=== PATIENT | male | born 1965 | race African-American/Black ===

== ENCOUNTER 2017-03-29 14:36 | Inpatient (IN) | payer OTHER ==
[2017-03-29 15:04] VITALS: BMI 27.4
--- NOTE | 2017-03-29 15:26 | HP ---
COWS - Scale Resting Pulse: 0= [place] 80 or Below Sweatin=Flushed/Facial Moisture Restless Observation: 1= Difficult to Sit Still Pupil Size: 0= Normal to Room Light Bone or Joint Aches: 2= Severe Diffuse Aches Runny Nose/ Eye Tearin= Constantly Teary/Runny GI Upset > 30mins: 2= Nausea/Diarrhea Tremor Observation: 2= Slight Tremor Visible Yawning Observation: 1= 1-2x During Session Anxiety or Irritability: 2=Irritable/Anxious Goose Flesh Skin: 3=Piloerection COWS Score: 19 Admission ROS S - HPI Chief Complaint: I am here for detox then go to rehab afterwards. Allergies/Adverse Reactions: Allergies Allergy/AdvReac Type Severity Reaction Status Date / Time No Known Allergies Allergy Verified 03/29/17 15:19 History of Present Illness: pt is a 51yr old male with a history of heroin dependence seeking detox for treatment. This is his first tx with us at [facility]. His last detox was at [facility] a year ago. Exam Limitations: No Limitations - Ebola screening Have you traveled outside of the country in the last 21 days: No Have you had contact with anyone from an Ebola affected area: No Have you been sick,other than usual withdrawal symptoms: No Do you have a fever: No - Review of Systems Constitutional: Chills, Diaphoresis, Loss of Appetite, Night Sweats, Changes in sleep EENT: reports: Tearing, Nose Congestion Respiratory: reports: No Symptoms reported Cardiac: reports: No Symptoms Reported GI: reports: Diarrhea, Poor Appetite, Poor Fluid Intake, Abdominal cramping : reports: No Symptoms Reported Musculoskeletal: reports: Back Pain, Joint Pain, Muscle Pain Integumentary: reports: Flushing, Sweating Neuro: reports: Headache, Tingling, Tremors, Dizziness Endocrine: reports: Excessive Sweating, Flushing, Intolerance to Cold, Intolerance to Heat Hematology: reports: No Symptoms Reported Psychiatric: reports: Judgement Intact, Mood/Affect Appropiate, Orientated x3, Agitated, Anxious Other Systems: Reviewed and Negative Patient History - Patient Medical History Hx Anemia: Yes Hx Asthma: No Hx Chronic Obstructive Pulmonary Disease (COPD): No Hx Cancer: No Hx Cardiac Disorders: No Hx Congestive Heart Failure: No Hx Hypertension: Yes Hx Hypercholesterolemia: No Hx Pacemaker: No HX Cerebrovascular Accident: No Hx Seizures: No Hx Dementia: No Hx Diabetes: No Hx Gastrointestinal Disorders: No Hx Liver Disease: No Hx Genitourinary Disorders: No Hx Sexually Transmitted Disorders: No Hx Renal Disease (ESRD): No Hx Thyroid Disease: No Hx Human Immunodeficiency Virus (HIV): No (negative) Hx Hepatitis C: No (negative) Hx Depression: No Hx Suicide Attempt: No (denies) Hx Bipolar Disorder: No Hx Schizophrenia: No - Patient Surgical History Hx Orthopedic Surgery: Yes (left hip fx 15yrs old) - PPD History Previous Implant?: Yes Documented Results: Negative w/o proof PPD to be Administered?: Yes - Reproductive History Patient is a Female of Child Bearing Age (11 -55 yrs old): No - Smoking Cessation Smoking history: Former smoker Have you smoked in the past 12 months: No If you are a former smoker, when did you quit?: 20yrs ago Hx Chewing Tobacco Use: No Initiated information on smoking cessation: No - Substance & Tx. History Hx Alcohol Use: No Hx Substance Use: Yes Substance Use Type: Heroin Hx Substance Use Treatment: Yes (last detox about a 1yr ago at [facility]) - Substances Abused Alcohol-beer Route: Oral Frequency: 1-2 times per week Amount used: 1-2 (12 oz.) Age of first use: 21 Date of Last Use: 03/29/17 Heroin Route: Inhalation Frequency: Daily Amount used: 15 bags Age of first use: 48 Date of Last Use: 03/29/17 Family Disease History - Family Disease History Family History: Denies Admission Physical Exam BHS - Vital Signs Vital Signs: Vital Signs - 24 hr 03/29/17 14:59 Temperature 97.4 F L Pulse Rate 61 Respiratory 20 Rate Blood Pressure 144/97 - Physical General Appearance: Yes: Appropriately Dressed, Moderate Distress, Tremorous, Irritable, Sweating, Anxious HEENTM: Yes: Normal Voice, Nasal Congestion, Rhinorrhea Respiratory: Yes: Lungs Clear, Normal Breath Sounds, No Respiratory Distress Neck: Yes: No masses,lesions,Nodules Breast: Yes: Within Normal Limits Cardiology: Yes: Regular Rhythm, Regular Rate, S1, S2 Abdominal: Yes: Normal Bowel Sounds, Non Tender, Soft Genitourinary: Yes: Within Normal Limits Back: Yes: Normal Inspection Musculoskeletal: Yes: Back pain Extremities: Yes: Normal Inspection, Non-Tender, Tremors Neurological: Yes: Fully Oriented, Alert, Normal Response Integumentary: Yes: Normal Color, Diaphoresis Lymphatic: Yes: Within Normal Limits - Diagnostic (1) Hypertension Current Visit: Yes Status: Chronic Qualifiers: Hypertension type: essential hypertension Qualified Code(s): I10 - Essential (primary) hypertension (2) Opioid dependence with withdrawal Current Visit: Yes Status: Chronic Cleared for Admission [facility] - Detox or Rehab [facility] Level of Care: Medically Managed Detox Regimen/Protocol: Methadone [facility] Breath Alcohol Content Breath Alcohol Content: 0.034 Urine Drug Screen - Results Drug Screen Negative: No Urine Drug Screen Results: OPI-Opiates, MTD-Methadone, OXY-Oxycodone
[2017-03-29] MEDS ORDERED: MAG HYDROX/AL HYDROX/SIMETH 30 ML UNIT-DOSE CUP PO PRN (15:39)
[2017-03-29] MEDS ORDERED: ACETAMINOPHEN 325 MG TABLET (FP) PO PRN (15:39)
[2017-03-29] MEDS ORDERED: guaiFENesin/D-METHORPHAN HB 10 ML UNIT-DOSE CUPS PO PRN (15:39)
[2017-03-29] MEDS ORDERED: MAGNESIUM HYDROX 2400MG/30ML ORAL SUSPENSION 30 ML CUP PO PRN (15:39)
[2017-03-29] MEDS ORDERED: MENTHOL/PHENOL 1 EACH UD MM PRN (15:39)
[2017-03-29] MEDS ORDERED: LOPERAMIDE HCL 2 MG CAPSULE PO PRN (15:39)
[2017-03-29] MEDS ORDERED: MAGNESIUM CITRATE 300 ML BOTTLE PO PRN (15:39)
[2017-03-29] MEDS ORDERED: METHADONE HCL 10 MG TABLET (FOR DETOX USE ONLY) PO ONE ×2 (15:52→23:00)
[2017-03-29] MEDS: diazePAM 5 MG TABLET PO PRN ×2 (17:01→22:09)
[2017-03-29] MEDS: IBUPROFEN 400 MG TABLET (FP) PO PRN (18:57)
[2017-03-29] MEDS ORDERED: CLONIDINE HCL PO SCH (22:00)
[2017-03-29] MEDS: THIAMINE HCL 100 MG TABLET (FP) PO SCH (22:09)
[2017-03-29] MEDS: cloNIDine HCL 0.1 MG TABLET PO SCH (22:09)
[2017-03-29] MEDS: diphenhydrAMINE HCL 50 MG CAPSULE PO PRN (22:10)
[2017-03-29 22:27] LABS: URINE APPEARANCE CLEAR; URINE BILIRUBIN NEGATIVE (NEGATIVE); URINE BLOOD NEGATIVE (NEGATIVE); URINE COLOR LTYELLOW; URINE GLUCOSE (UA) NEGATIVE (NEGATIVE); URINE KETONE NEGATIVE (NEGATIVE); URINE LEUK ESTERASE TRACE (NEGATIVE); URINE NITRITE NEGATIVE (NEGATIVE); URINE PROTEIN NEGATIVE (NEGATIVE); URINE UROBILINOGEN NEGATIVE mg/dL (0.2-1.0)
[2017-03-29 22:36] LABS: URINE MUCUS RARE; URINE RBC <1 /hpf (0-3); URINE WBC 1 /hpf (3-5)
[2017-03-30 09:56] LABS: MCH 30.9 pg (25.7-33.7); MEAN CELL VOLUME 90.8 fl (80-96); MEAN PLT VOLUME 8.8 fl (7.5-11.1); PLATELET COUNT 312 K/MM3 (134-434); RDW 13.1 % (11.9-15.9); WHITE BLOOD COUNT 7.3 K/mm3 (4.0-10.0)
[2017-03-30] MEDS ORDERED: METHADONE HCL 10 MG TABLET (FOR DETOX USE ONLY) PO ONE (10:00)
[2017-03-30 10:15] LABS: ALBUMIN 3.3 g/dl (3.4-5.0); ALK PHOS 55 U/L (45-117); ANION GAP 4 (8-16); BILIRUBIN,TOTAL 1.1 mg/dL (0.2-1.0); CALCIUM 9.4 mg/dL (8.5-10.1); CO2 33 mmol/L (21-32); CREATININE 1.3 mg/dL (0.7-1.3); GLUCOSE,RANDOM 98 mg/dL (74-106); SGOT/AST 24 U/L (15-37); SGPT/ALT 30 U/L (12-78); TOT PROT 6.4 g/dl (6.4-8.2)
[2017-03-30] MEDS: diazePAM 5 MG TABLET PO PRN ×3 (10:28→22:11)
[2017-03-30] MEDS: cloNIDine HCL 0.1 MG TABLET PO SCH ×2 (10:28→22:11)
[2017-03-30] MEDS: PRENATAL VITAMINS W/ FOLIC ACID TABLET (FP) PO SCH (10:28)
[2017-03-30 11:40] LABS: HIV 1 & 2 AB NEGATIVE; HIV 1 AGp24 NEGATIVE
--- NOTE | 2017-03-30 14:43 | PN ---
BHS COWS - Scale Resting Pulse: 0= [place] 80 or Below Sweatin= Chills/Flushing Restless Observation: 1= Difficult to Sit Still Pupil Size: 0= Normal to Room Light Bone or Joint Aches: 2= Severe Diffuse Aches Runny Nose/ Eye Tearin= None GI Upset > 30mins: 1= Stomach Cramp Tremor Observation of Outstretched Hands: 2= Slight Tremor Visible Yawning Observation: 2= >3x During Session Anxiety or Irritability: 2=Irritable/Anxious Goose Flesh Skin: 3=Piloerection COWS Score: 14 BHS Progress Note (SOAP) Subjective: Interrupted sleep, Fatigue, Sweating, Tremors, Body Aches, Stomach Cramping. Objective: PT. A & O X 2 (DISORIENTED ABOUT DAY / DATE). PT. OBSERVED AMBULATING ON UNIT. NO ACUTE DISTRESS. 03/30/17 14:41 Vital Signs Temperature 98.8 F 03/30/17 13:53 Pulse Rate 67 03/30/17 13:53 Respiratory Rate 18 03/30/17 13:53 Blood Pressure 98/68 03/30/17 13:53 O2 Sat by Pulse Oximetry (%) Laboratory Tests 03/29/17 03/30/17 03/30/17 21:53 06:30 06:30 WBC 7.3 RBC 4.52 Hgb 14.0 Hct 41.1 MCV 90.8 MCH 30.9 MCHC 34.0 RDW 13.1 Plt Count 312 MPV 8.8 Sodium Potassium Chloride Carbon Dioxide Anion Gap BUN Creatinine Creat Clearance w eGFR Random Glucose Calcium Total Bilirubin AST ALT Alkaline Phosphatase Total Protein Albumin Urine Color Ltyellow Urine Appearance Clear Urine pH 5.0 Ur Specific [place] 1.010 Urine Protein Negative Urine Glucose (UA) Negative Urine Ketones Negative Urine Blood Negative Urine Nitrite Negative Urine Bilirubin Negative Urine Urobilinogen Negative Ur Leukocyte Esterase Trace H Urine RBC <1 Urine WBC 1 Urine Mucus Rare RPR Titer HIV 1&2 Antibody Screen Negative HIV P24 Antigen Negative 03/30/17 03/30/17 06:30 06:30 WBC RBC Hgb Hct MCV MCH MCHC RDW Plt Count MPV Sodium 139 Potassium 4.4 Chloride 102 Carbon Dioxide 33 H Anion Gap 4 L BUN 18 Creatinine 1.3 Creat Clearance w eGFR 58.43 Random Glucose 98 Calcium 9.4 Total Bilirubin 1.1 H AST 24 ALT 30 Alkaline Phosphatase 55 Total Protein 6.4 Albumin 3.3 L Urine Color Urine Appearance Urine pH Ur Specific [place] Urine Protein Urine Glucose (UA) Urine Ketones Urine Blood Urine Nitrite Urine Bilirubin Urine Urobilinogen Ur Leukocyte Esterase Urine RBC Urine WBC Urine Mucus RPR Titer Nonreactive HIV 1&2 Antibody Screen HIV P24 Antigen LABS NOTED. Assessment: 03/30/17 14:42 WITHDRAWAL SYMPTOMS. Plan: CONTINUE DETOX. INCREASE PO FLUID INTAKE.
--- NOTE | 2017-03-30 15:47 | EKG ---
Test Reason : Blood Pressure : / mmHG Vent. Rate : 070 BPM Atrial Rate : 070 BPM P-R Int : 162 ms QRS Dur : 084 ms QT Int : 414 ms P-R-T Axes : 044 032 033 degrees QTc Int : 447 ms NORMAL SINUS RHYTHM NORMAL ECG NO PREVIOUS ECGS AVAILABLE Confirmed by DAVID NOVOA MD ([id number]) on 03/30/2017 3:47:19 PM Referred By: Confirmed By:DAVID NOVOA MD
[2017-03-30] MEDS: THIAMINE HCL 100 MG TABLET (FP) PO SCH (22:11)
[2017-03-30] MEDS: diphenhydrAMINE HCL 50 MG CAPSULE PO PRN (22:12)
[2017-03-30] MEDS: P-EPHED 60MG/TRIPROLIDI 2.5MG TABLET PO PRN (22:14)
[2017-03-31] MEDS ORDERED: cloNIDine HCL 0.1 MG TABLET PO ONE (05:59)
[2017-03-31] MEDS ORDERED: METHADONE HCL 5 MG TABLET (FOR DETOX USE ONLY) PO ONE (10:00)
[2017-03-31] MEDS: PRENATAL VITAMINS W/ FOLIC ACID TABLET (FP) PO SCH (10:27)
[2017-03-31] MEDS: cloNIDine HCL 0.1 MG TABLET PO SCH ×2 (10:27→22:27)
[2017-03-31] MEDS: IBUPROFEN 400 MG TABLET (FP) PO PRN (10:28)
[2017-03-31] MEDS: diazePAM 5 MG TABLET PO PRN ×2 (10:29→22:27)
--- NOTE | 2017-03-31 11:33 | PN ---
S COWS - Scale Resting Pulse: 0= [place] 80 or Below Sweatin=Flushed/Facial Moisture Restless Observation: 0= Sits Still Pupil Size: 0= Normal to Room Light Bone or Joint Aches: 2= Severe Diffuse Aches Runny Nose/ Eye Tearin= Nasal Congestion GI Upset > 30mins: 1= Stomach Cramp Tremor Observation of Outstretched Hands: 0= None Yawning Observation: 1= 1-2x During Session Anxiety or Irritability: 2=Irritable/Anxious Goose Flesh Skin: 3=Piloerection COWS Score: 12 S Progress Note (SOAP) Subjective: Body aches, Interrupted sleep, H/A, Lower Back Ache. Objective: PT. A & O X 3, OBSERVED AMBULATING ON UNIT. NO ACUTE DISTRESS. PT. DENIES CHEST PAIN. 03/31/17 11:29 Vital Signs Temperature 97.9 F 03/31/17 10:32 Pulse Rate 64 03/31/17 10:32 Respiratory Rate 18 03/31/17 10:32 Blood Pressure 140/98 03/31/17 10:32 O2 Sat by Pulse Oximetry (%) Laboratory Tests 03/29/17 03/30/17 03/30/17 21:53 06:30 06:30 WBC 7.3 RBC 4.52 Hgb 14.0 Hct 41.1 MCV 90.8 MCH 30.9 MCHC 34.0 RDW 13.1 Plt Count 312 MPV 8.8 Sodium Potassium Chloride Carbon Dioxide Anion Gap BUN Creatinine Creat Clearance w eGFR Random Glucose Calcium Total Bilirubin AST ALT Alkaline Phosphatase Total Protein Albumin Urine Color Ltyellow Urine Appearance Clear Urine pH 5.0 Ur Specific [place] 1.010 Urine Protein Negative Urine Glucose (UA) Negative Urine Ketones Negative Urine Blood Negative Urine Nitrite Negative Urine Bilirubin Negative Urine Urobilinogen Negative Ur Leukocyte Esterase Trace H Urine RBC <1 Urine WBC 1 Urine Mucus Rare RPR Titer HIV 1&2 Antibody Screen Negative HIV P24 Antigen Negative 03/30/17 03/30/17 06:30 06:30 WBC RBC Hgb Hct MCV MCH MCHC RDW Plt Count MPV Sodium 139 Potassium 4.4 Chloride 102 Carbon Dioxide 33 H Anion Gap 4 L BUN 18 Creatinine 1.3 Creat Clearance w eGFR 58.43 Random Glucose 98 Calcium 9.4 Total Bilirubin 1.1 H AST 24 ALT 30 Alkaline Phosphatase 55 Total Protein 6.4 Albumin 3.3 L Urine Color Urine Appearance Urine pH Ur Specific [place] Urine Protein Urine Glucose (UA) Urine Ketones Urine Blood Urine Nitrite Urine Bilirubin Urine Urobilinogen Ur Leukocyte Esterase Urine RBC Urine WBC Urine Mucus RPR Titer Nonreactive HIV 1&2 Antibody Screen HIV P24 Antigen LABS NOTED. Assessment: 03/31/17 11:30 WITHDRAWAL SYMPTOMS. Plan: CONTINUE DETOX. CONTINUE TO MONITOR BP.
[2017-03-31] MEDS: THIAMINE HCL 100 MG TABLET (FP) PO SCH (22:27)
[2017-03-31] MEDS: P-EPHED 60MG/TRIPROLIDI 2.5MG TABLET PO PRN (22:28)
[2017-03-31] MEDS: diphenhydrAMINE HCL 50 MG CAPSULE PO PRN (22:28)
[2017-04-01] MEDS ORDERED: METHADONE HCL 5 MG TABLET (FOR DETOX USE ONLY) PO ONE (10:00)
[2017-04-01] MEDS: cloNIDine HCL 0.1 MG TABLET PO SCH ×2 (10:31→22:21)
[2017-04-01] MEDS: PRENATAL VITAMINS W/ FOLIC ACID TABLET (FP) PO SCH (10:31)
[2017-04-01] MEDS: diazePAM 5 MG TABLET PO PRN (10:33)
[2017-04-01] MEDS: LIDOCAINE 5% TOPICAL PATCH TP SCH (10:34)
[2017-04-01] MEDS: IBUPROFEN 400 MG TABLET (FP) PO PRN ×2 (10:42→22:24)
--- NOTE | 2017-04-01 13:37 | PN ---
BHS Progress Note (SOAP) Subjective: Interrupted Sleep, Lower Back Ache. Objective: PT. A & O X 2 (DISORIENTED ABOUT DAY /DATE). PT. OBSERVED AMBULATING ON UNIT. NO ACUTE DISTRESS. PT. DENIES CHEST PAIN. 04/01/17 13:34 Vital Signs Temperature 97.0 F L 04/01/17 13:20 Pulse Rate 52 L 04/01/17 13:20 Respiratory Rate 20 04/01/17 13:20 Blood Pressure 145/94 04/01/17 13:20 O2 Sat by Pulse Oximetry (%) Laboratory Tests 03/29/17 03/30/17 03/30/17 21:53 06:30 06:30 WBC 7.3 RBC 4.52 Hgb 14.0 Hct 41.1 MCV 90.8 MCH 30.9 MCHC 34.0 RDW 13.1 Plt Count 312 MPV 8.8 Sodium Potassium Chloride Carbon Dioxide Anion Gap BUN Creatinine Creat Clearance w eGFR Random Glucose Calcium Total Bilirubin AST ALT Alkaline Phosphatase Total Protein Albumin Urine Color Ltyellow Urine Appearance Clear Urine pH 5.0 Ur Specific [place] 1.010 Urine Protein Negative Urine Glucose (UA) Negative Urine Ketones Negative Urine Blood Negative Urine Nitrite Negative Urine Bilirubin Negative Urine Urobilinogen Negative Ur Leukocyte Esterase Trace H Urine RBC <1 Urine WBC 1 Urine Mucus Rare RPR Titer HIV 1&2 Antibody Screen Negative HIV P24 Antigen Negative 03/30/17 03/30/17 06:30 06:30 WBC RBC Hgb Hct MCV MCH MCHC RDW Plt Count MPV Sodium 139 Potassium 4.4 Chloride 102 Carbon Dioxide 33 H Anion Gap 4 L BUN 18 Creatinine 1.3 Creat Clearance w eGFR 58.43 Random Glucose 98 Calcium 9.4 Total Bilirubin 1.1 H AST 24 ALT 30 Alkaline Phosphatase 55 Total Protein 6.4 Albumin 3.3 L Urine Color Urine Appearance Urine pH Ur Specific [place] Urine Protein Urine Glucose (UA) Urine Ketones Urine Blood Urine Nitrite Urine Bilirubin Urine Urobilinogen Ur Leukocyte Esterase Urine RBC Urine WBC Urine Mucus RPR Titer Nonreactive HIV 1&2 Antibody Screen HIV P24 Antigen LABS NOTED. 04/01/17 13:37 Assessment: 04/01/17 13:35 WITHDRAWAL SYMPTOMS. Plan: CONTINUE DETOX.
[2017-04-01] MEDS: diphenhydrAMINE HCL 50 MG CAPSULE PO PRN (22:21)
[2017-04-01] MEDS: THIAMINE HCL 100 MG TABLET (FP) PO SCH (22:21)
[2017-04-01] MEDS: LIDOCAINE PATCH REMOVAL MC SCH (22:22)
[2017-04-01] MEDS: P-EPHED 60MG/TRIPROLIDI 2.5MG TABLET PO PRN (22:23)
[2017-04-02] MEDS: hydrOXYzine PAMOATE 50 MG CAPSULE (FP) PO PRN ×4 (05:58→20:12)
[2017-04-02] MEDS: IBUPROFEN 400 MG TABLET (FP) PO PRN ×3 (05:58→22:46)
[2017-04-02] MEDS ORDERED: METHADONE HCL 10 MG TABLET (FOR DETOX USE ONLY) PO ONE (10:00)
[2017-04-02] MEDS: cloNIDine HCL 0.1 MG TABLET PO SCH ×2 (10:27→22:45)
[2017-04-02] MEDS: PRENATAL VITAMINS W/ FOLIC ACID TABLET (FP) PO SCH (10:27)
[2017-04-02] MEDS: LIDOCAINE 5% TOPICAL PATCH TP SCH (10:28)
--- NOTE | 2017-04-02 15:42 | PN ---
[facility] Progress Note (SOAP) Subjective: Anxious, sweating, dizziness, interrupted sleep Objective: 04/02/17 15:41 Last Vital Signs Temp Pulse Resp BP Pulse Ox 96.2 F L 65 18 131/87 04/02/17 13:07 04/02/17 13:07 04/02/17 13:07 04/02/17 13:07 Laboratory Tests 03/29/17 03/30/17 03/30/17 21:53 06:30 06:30 WBC 7.3 RBC 4.52 Hgb 14.0 Hct 41.1 MCV 90.8 MCH 30.9 MCHC 34.0 RDW 13.1 Plt Count 312 MPV 8.8 Sodium Potassium Chloride Carbon Dioxide Anion Gap BUN Creatinine Creat Clearance w eGFR POC Glucometer Random Glucose Calcium Total Bilirubin AST ALT Alkaline Phosphatase Total Protein Albumin Urine Color Ltyellow Urine Appearance Clear Urine pH 5.0 Ur Specific [place] 1.010 Urine Protein Negative Urine Glucose (UA) Negative Urine Ketones Negative Urine Blood Negative Urine Nitrite Negative Urine Bilirubin Negative Urine Urobilinogen Negative Ur Leukocyte Esterase Trace H Urine RBC <1 Urine WBC 1 Urine Mucus Rare RPR Titer HIV 1&2 Antibody Screen Negative HIV P24 Antigen Negative 03/30/17 03/30/17 04/02/17 06:30 06:30 05:57 WBC RBC Hgb Hct MCV MCH MCHC RDW Plt Count MPV Sodium 139 Potassium 4.4 Chloride 102 Carbon Dioxide 33 H Anion Gap 4 L BUN 18 Creatinine 1.3 Creat Clearance w eGFR 58.43 POC Glucometer 116 Random Glucose 98 Calcium 9.4 Total Bilirubin 1.1 H AST 24 ALT 30 Alkaline Phosphatase 55 Total Protein 6.4 Albumin 3.3 L Urine Color Urine Appearance Urine pH Ur Specific [place] Urine Protein Urine Glucose (UA) Urine Ketones Urine Blood Urine Nitrite Urine Bilirubin Urine Urobilinogen Ur Leukocyte Esterase Urine RBC Urine WBC Urine Mucus RPR Titer Nonreactive HIV 1&2 Antibody Screen HIV P24 Antigen Labs noted Assessment: 04/02/17 15:41 Withdrawal symptoms Plan: Continue detox Encouraged to drink lots of water
[2017-04-02] MEDS: THIAMINE HCL 100 MG TABLET (FP) PO SCH (22:47)
[2017-04-02] MEDS: LIDOCAINE PATCH REMOVAL MC SCH (22:47)
[2017-04-02] MEDS: diphenhydrAMINE HCL 50 MG CAPSULE PO PRN (22:47)
[2017-04-03] MEDS ORDERED: METHADONE HCL 5 MG TABLET (FOR DETOX USE ONLY) PO ONE (06:00)
[2017-04-03] MEDS: IBUPROFEN 400 MG TABLET (FP) PO PRN ×2 (07:30→17:21)
[2017-04-03] MEDS: cloNIDine HCL 0.1 MG TABLET PO SCH ×2 (10:07→22:23)
[2017-04-03] MEDS: PRENATAL VITAMINS W/ FOLIC ACID TABLET (FP) PO SCH (10:07)
[2017-04-03] MEDS: LIDOCAINE 5% TOPICAL PATCH TP SCH (10:07)
[2017-04-03] MEDS: CYCLOBENZAPRINE HCL 10 MG TABLET (FP) PO PRN ×2 (10:08→22:24)
--- NOTE | 2017-04-03 16:02 | PN ---
BHS Progress Note (SOAP) Subjective: Tremors, Sweating. Objective: PT. A & O X 3, OBSERVED AMBULATING ON UNIT. NO ACUTE DISTRESS. PT. DENIES CHEST PAIN. 04/03/17 16:00 Vital Signs Temperature 97.7 F 04/03/17 14:09 Pulse Rate 65 04/03/17 14:09 Respiratory Rate 18 04/03/17 14:09 Blood Pressure 140/96 04/03/17 14:09 O2 Sat by Pulse Oximetry (%) Laboratory Tests 03/29/17 03/30/17 03/30/17 21:53 06:30 06:30 WBC 7.3 RBC 4.52 Hgb 14.0 Hct 41.1 MCV 90.8 MCH 30.9 MCHC 34.0 RDW 13.1 Plt Count 312 MPV 8.8 Sodium Potassium Chloride Carbon Dioxide Anion Gap BUN Creatinine Creat Clearance w eGFR POC Glucometer Random Glucose Calcium Total Bilirubin AST ALT Alkaline Phosphatase Total Protein Albumin Urine Color Ltyellow Urine Appearance Clear Urine pH 5.0 Ur Specific [place] 1.010 Urine Protein Negative Urine Glucose (UA) Negative Urine Ketones Negative Urine Blood Negative Urine Nitrite Negative Urine Bilirubin Negative Urine Urobilinogen Negative Ur Leukocyte Esterase Trace H Urine RBC <1 Urine WBC 1 Urine Mucus Rare RPR Titer HIV 1&2 Antibody Screen Negative HIV P24 Antigen Negative 03/30/17 03/30/17 04/02/17 06:30 06:30 05:57 WBC RBC Hgb Hct MCV MCH MCHC RDW Plt Count MPV Sodium 139 Potassium 4.4 Chloride 102 Carbon Dioxide 33 H Anion Gap 4 L BUN 18 Creatinine 1.3 Creat Clearance w eGFR 58.43 POC Glucometer 116 Random Glucose 98 Calcium 9.4 Total Bilirubin 1.1 H AST 24 ALT 30 Alkaline Phosphatase 55 Total Protein 6.4 Albumin 3.3 L Urine Color Urine Appearance Urine pH Ur Specific [place] Urine Protein Urine Glucose (UA) Urine Ketones Urine Blood Urine Nitrite Urine Bilirubin Urine Urobilinogen Ur Leukocyte Esterase Urine RBC Urine WBC Urine Mucus RPR Titer Nonreactive HIV 1&2 Antibody Screen HIV P24 Antigen LABS NOTED. Assessment: 04/03/17 16:01 WITHDRAWAL SYMPTOMS. Plan: CONTINUE DETOX.
[2017-04-03] MEDS: THIAMINE HCL 100 MG TABLET (FP) PO SCH (22:23)
[2017-04-03] MEDS: P-EPHED 60MG/TRIPROLIDI 2.5MG TABLET PO PRN (22:24)
[2017-04-03] MEDS: diphenhydrAMINE HCL 50 MG CAPSULE PO PRN (22:24)
[2017-04-03] MEDS: LIDOCAINE PATCH REMOVAL MC SCH (22:25)
[2017-04-04] MEDS: IBUPROFEN 400 MG TABLET (FP) PO PRN (06:21)
[2017-04-04] MEDS: cloNIDine HCL 0.1 MG TABLET PO SCH (09:09)
[2017-04-04] MEDS: PRENATAL VITAMINS W/ FOLIC ACID TABLET (FP) PO SCH (09:09)
[2017-04-04] MEDS: LIDOCAINE 5% TOPICAL PATCH TP SCH (09:10)
[2017-04-04 09:46] VITALS: BP 117/86; PULSE 83; TEMP 97.6
--- NOTE | 2017-04-04 10:57 | DS ---
[facility] Detox Discharge Summary Admission Date: 03/29/17 Discharge Date: 04/04/17 - History Present History: Opioid Dependence Additional Comments: Patient electing to go home and will attend Care Counseling Outpatient Day Program. Advised patient to follow-up with Primary Care Medical Provider (patient does currently have one, but unable to remember name at this time) for general medical evaluation and for history of HTN and elevated BP while admitted for Detox. Patient verbalized understanding of recommendations. Pertinent Past History: Anemia, HTN. - Physical Exam Results Vital Signs: Vital Signs Temperature 97.6 F 04/04/17 09:45 Pulse Rate 83 04/04/17 09:45 Respiratory Rate 18 04/04/17 09:45 Blood Pressure 117/86 04/04/17 09:45 O2 Sat by Pulse Oximetry (%) Pertinent Admission Physical Exam Findings: WITHDRAWAL SYMPTOMS. Laboratory Tests 03/29/17 03/30/17 03/30/17 21:53 06:30 06:30 WBC 7.3 RBC 4.52 Hgb 14.0 Hct 41.1 MCV 90.8 MCH 30.9 MCHC 34.0 RDW 13.1 Plt Count 312 MPV 8.8 Sodium Potassium Chloride Carbon Dioxide Anion Gap BUN Creatinine Creat Clearance w eGFR POC Glucometer Random Glucose Calcium Total Bilirubin AST ALT Alkaline Phosphatase Total Protein Albumin Urine Color Ltyellow Urine Appearance Clear Urine pH 5.0 Ur Specific [place] 1.010 Urine Protein Negative Urine Glucose (UA) Negative Urine Ketones Negative Urine Blood Negative Urine Nitrite Negative Urine Bilirubin Negative Urine Urobilinogen Negative Ur Leukocyte Esterase Trace H Urine RBC <1 Urine WBC 1 Urine Mucus Rare RPR Titer HIV 1&2 Antibody Screen Negative HIV P24 Antigen Negative 03/30/17 03/30/17 04/02/17 06:30 06:30 05:57 WBC RBC Hgb Hct MCV MCH MCHC RDW Plt Count MPV Sodium 139 Potassium 4.4 Chloride 102 Carbon Dioxide 33 H Anion Gap 4 L BUN 18 Creatinine 1.3 Creat Clearance w eGFR 58.43 POC Glucometer 116 Random Glucose 98 Calcium 9.4 Total Bilirubin 1.1 H AST 24 ALT 30 Alkaline Phosphatase 55 Total Protein 6.4 Albumin 3.3 L Urine Color Urine Appearance Urine pH Ur Specific [place] Urine Protein Urine Glucose (UA) Urine Ketones Urine Blood Urine Nitrite Urine Bilirubin Urine Urobilinogen Ur Leukocyte Esterase Urine RBC Urine WBC Urine Mucus RPR Titer Nonreactive HIV 1&2 Antibody Screen HIV P24 Antigen 04/04/17 05:57 WBC RBC Hgb Hct MCV MCH MCHC RDW Plt Count MPV Sodium Potassium Chloride Carbon Dioxide Anion Gap BUN Creatinine Creat Clearance w eGFR POC Glucometer 90 Random Glucose Calcium Total Bilirubin AST ALT Alkaline Phosphatase Total Protein Albumin Urine Color Urine Appearance Urine pH Ur Specific [place] Urine Protein Urine Glucose (UA) Urine Ketones Urine Blood Urine Nitrite Urine Bilirubin Urine Urobilinogen Ur Leukocyte Esterase Urine RBC Urine WBC Urine Mucus RPR Titer HIV 1&2 Antibody Screen HIV P24 Antigen LABS NOTED. - Treatment Hospital Course: Detox Protocol Followed, Detoxed Safely, Responded well, Discharged Condition Good Patient has Accepted a Rehab Referral to: PT GOING HOME. WILL ATTEND CARE COUNSELING DAY PROGRAM. SEE COMMENTS ABOVE. - Medication Discharge Medications: Ambulatory Orders Clonidine HCl 0.2 mg PO BID #60 tablet 04/03/17 - Diagnosis (1) Hypertension Status: Chronic Qualifiers: Hypertension type: essential hypertension Qualified Code(s): I10 - Essential (primary) hypertension (2) Opioid dependence with withdrawal Status: Acute - AMA Did Patient Leave Against Medical Advice: No
== END 2017-04-04 09:11 | disposition home or self-care (01) | DRG 773 ==
LOC: YASAS 14:36 → Y3N 15:50
PROVIDERS: ADMIT Internal Medicine; ATTEND Internal Medicine
PROC: HZ2ZZZZ Detoxification Services for Substance Abuse Treatment (ICD-10-PCS; principal; 2017-04-04)
DX: F11.23 Opioid dependence with withdrawal (principal); I10 Essential (primary) hypertension; Z87.891 Personal history of nicotine dependence
CPT/HCPCS: 36415; 80053; 81003; 81015; 85027; 86593; 87389; 93005; 93010